=== PATIENT | female | born 1965 | race Caucasian/White ===

== ENCOUNTER 2020-03-27 15:15 | Outpatient (CLI) | payer MEDICARE, MEDICAID, SELFPAY ==
--- NOTE | 2020-03-27 | USCV_ITS ---
FriendKenia Age: 55 Gender: F : 1965 Exam Date: 03/27/2020 15:41 Ordering Phys: Yaw Segovia Technologist: Angela Garcia Exam Location: [facility] [place]ication: PAINFUL LT LEG HISTORY: Painful Lt Leg PROCEDURES: Venous duplex imaging was performed in only the left lower extremity. The following venous structures were evaluated: common femoral vein, profunda vein, proximal portion of the greater saphenous vein, superficial femoral vein, and the popliteal vein. In addition, the posterior tibial and peroneal trunk were evaluated. Serial compression, augmentation maneuvers, and spectral Doppler flow evaluation were performed. FINDINGS: Normal 2-D Doppler and augmentation and compressibility throughout the lower extremity venous structures. Additional imaging through the proximal calf veins also reveals no thrombus. Limited evaluation of the greater saphenous vein is patent with no thrombus. CONCLUSIONS No DVT left lower extremity. Dr. Madeline Rodriguez DO (Electronically Signed) Final Date: 28 March 2020 07:48 S
== END 2020-03-27 15:16 | disposition home or self-care (01) ==
LOC: RAD 15:24
PROVIDERS: PCP Family Medicine; Visit Provider Family Medicine
DX: M79.662 Pain in left lower leg (principal); M79.89 Other specified soft tissue disorders
CPT/HCPCS: 93971